=== PATIENT | male | born 1945 | race American Indian/Alaskan Native ===

== ENCOUNTER 2016-08-02 13:44 | Emergency (ER) | payer OTHER ==
[2016-08-02 13:53] VITALS: BMI 21.7
[2016-08-02] MEDS ORDERED: ALBUTEROL SO4 2.5/IPRATROPIUM 0.5 INH SOL 3 ML VIAL.NEB. NEB ONE ×2 (13:55→15:43)
--- NOTE | 2016-08-02 14:23 | PDOC ---
History of Present Illness - General Chief Complaint: Shortness of Breath Stated Complaint: SENT BY PCP,SOB Time Seen by Provider: 08/02/16 13:59 Past History - Past Medical History Allergies/Adverse Reactions: Allergies Allergy/AdvReac Type Severity Reaction Status Date / Time No Known Allergies Allergy Verified 08/02/16 13:53 Home Medications: Ambulatory Orders Albuterol Sulfate Inhaler - [Ventolin HFA Inhaler -] 2 inh PO Q4H PRN #1 inh Amlodipine Besylate [Norvasc -] 5 mg PO DAILY 08/02/16 Prednisone [Deltasone -] 40 mg PO DAILY #10 tablet 08/02/16 CVA: Yes HTN: Yes Other medical history: PATIENT DENIES MEDICAL HISTORY - Psycho/Social/Smoking Cessation Hx Suicidal Ideation: No Smoking History: Never smoked Hx Alcohol Use: No Drug/Substance Use Hx: No *Physical Exam - Vital Signs Last Vital Signs Temp Pulse Resp BP Pulse Ox 98.2 F 105 H 32 H 171/140 92 L 08/02/16 13:49 08/02/16 13:49 08/02/16 13:49 08/02/16 13:49 08/02/16 13:49 ED Treatment Course - LABORATORY CBC & Chemistry Diagram: 08/02/16 16:00 08/02/16 16:00 - Medications Given in the ED: ED Medications Discontinued Medications Generic Name Dose Route Start Last Admin Trade Name Freq PRN Reason Stop Dose Admin Albuterol/Ipratropium 1 amp 08/02/16 13:55 08/02/16 13:56 Duoneb - NEB 08/02/16 13:56 1 amp NOW ONE Administration Medical Decision Making - Medical Decision Making 08/02/16 18:39 Patient is a 70-year-old man who was evaluated by the resident. He came back from a trip to [facility] 2 weeks ago. He has been having cough and shortness of breath since that time. He also noted diffuse wheezing. He denies fever, chest pain, or headache. On examination, there is mild diffuse expiratory wheezing throughout all lung denson. Heart is normal. Abdomen is benign. Extremities are without edema. Twelve-lead EKG shows normal sinus rhythm at a rate of 79 bpm. There is biatrial enlargement. There is poor R-wave progression from V1 to V4. There are no acute ST elevations or depressions. Is no old EKG for comparison. Chest x-ray is currently pending. Laboratory studies reviewed. CBC is mildly elevated with increased eosinophils. D-dimer is well within the normal range. Creatinine is normal. Troponin is negative. BNP is mildly elevated, but not significantly abnormal for age. Impression: Given patient's prior history of asthma although it has not been active in recent years, this is most likely bronchospasm. Acute coronary syndrome is unlikely given the duration of symptoms and the negative troponin with no acute ST or T-wave changes on EKG. Pulmonary embolism is also highly unlikely given the absence of chest pain, no hemoptysis, and d-dimer well within the normal range. Plan is to check the chest x-ray to rule out other cardiopulmonary pathology. Patient is feeling better post bronchodilators and steroids. Chest x-ray shows chronic biapical pleural thickening. Patient grew up in [place]. He denies any history of known tuberculosis. Although he has been having wheezing over the last 2 weeks. His weight has been stable. There are no night sweats. There have been no fevers. Patient will be treated with albuterol and prednisone. He will be referred to the human geography instructor for further workup of his biapical pleural thickening. Laboratory Results - last 24 hr 08/02/16 08/02/16 08/02/16 16:00 16:00 16:00 WBC 12.1 H RBC 5.41 Hgb 15.7 Hct 47.1 MCV 87.0 MCHC 33.4 RDW 14.1 Plt Count 296 MPV 6.8 L Neutrophils % 80.2 Lymphocytes % 7.5 L Monocytes % 5.7 Eosinophils % 6.1 H Basophils % 0.5 PTT (Actin FS) D-Dimer 43 Sodium 137 Potassium 4.2 Chloride 99 Carbon Dioxide 26 Anion Gap 12 BUN 21 H Creatinine 1.1 Creat Clearance w eGFR > 60 Random Glucose 112 H Calcium 9.0 Total Bilirubin 2.0 H AST 35 ALT 37 Alkaline Phosphatase 93 Creatine Kinase 477 H Troponin I < 0.02 B-Natriuretic Peptide Total Protein 8.1 Albumin 4.2 08/02/16 08/02/16 16:00 16:00 WBC RBC Hgb Hct MCV MCHC RDW Plt Count MPV Neutrophils % Lymphocytes % Monocytes % Eosinophils % Basophils % PTT (Actin FS) 32.0 D-Dimer Sodium Potassium Chloride Carbon Dioxide Anion Gap BUN Creatinine Creat Clearance w eGFR Random Glucose Calcium Total Bilirubin AST ALT Alkaline Phosphatase Creatine Kinase Troponin I B-Natriuretic Peptide 220.34 H Total Protein Albumin 08/02/16 20:43 *DC/Admit/Observation/Transfer Diagnosis at time of Disposition: Asthma Qualifiers: Asthma severity: mild intermittent Asthma complication type: with acute exacerbation Qualified Code(s): J45.21 - Mild intermittent asthma with (acute) exacerbation - Discharge Dispostion Disposition: HOME Condition at time of disposition: Stable Admit: No - Prescriptions Prescriptions: Prednisone [Deltasone -] 40 mg PO DAILY #10 tablet Albuterol Sulfate Inhaler - [Ventolin HFA Inhaler -] 2 inh PO Q4H PRN #1 inh PRN Reason: Asthma - Referrals Referrals: Derrell Hobbs MD [Primary Care Provider] - Gagan Sinha MD, MD [Staff Physician] - Call tomorrow - Patient Instructions Printed Discharge Instructions: DI for Asthma -- Adult Additional Instructions: Today you were evaluated for wheezing and shortness of breath. This is due to a flareup of asthma. Take prednisone 2 tablets, 40 mg total, every morning. Take albuterol 2 inhalations every 4 hours as needed for wheezing. Continue your blood pressure medications as before. Be sure to take them every day. Your chest x-ray showed thickening of the pleura at the top of the lungs. This needs to be followed up with a pulmonary doctor. Call Dr. Gagan Sinha tomorrow morning at 9 AM to schedule your follow-up pulmonary appointment. Return to the Hospital immediately if you have fever, night sweats, or cough with blood. Otherwise follow-up with your primary doctor and the pulmonary doctor. Bring a copy of all of your results with you to your next appointments.
--- NOTE | 2016-08-02 14:23 | PDOC ---
[id number] Limitations - History of Present Illness Initial Comments: 70 yo Citizen Of [place] man with h/o asthma never intubated non-steroid dependent and HTN presented to the ED with worsening shortness of breath x 1 week. He came from [facility] and arrived in [place] 1 week ago. He attributes the symptoms to the weather change in that [place] is much colder than [place]. He also coughs intermittently with white sputum production. Denies fever, chills, h/o smoking, headache, n/v, chest pain, urinary or bowel symptoms. <Luis Miguel Valera - Last Filed: 08/05/16 00:02> <Pj Tipton - Last Filed: 08/13/16 13:41> - General Chief Complaint: Shortness of Breath Stated Complaint: SENT BY PCP,SOB Time Seen by Provider: 08/02/16 13:59 Past History - Past Medical History CVA: Yes HTN: Yes Other medical history: PATIENT DENIES MEDICAL HISTORY - Psycho/Social/Smoking Cessation Hx Suicidal Ideation: No Smoking History: Never smoked Hx Alcohol Use: No Drug/Substance Use Hx: No <Luis Miguel Valera - Last Filed: 08/05/16 00:02> <Pj Tipton - Last Filed: 08/13/16 13:41> - Past Medical History Allergies/Adverse Reactions: Allergies Allergy/AdvReac Type Severity Reaction Status Date / Time No Known Allergies Allergy Verified 08/02/16 13:53 Home Medications: Ambulatory Orders Albuterol Sulfate Inhaler - [Ventolin HFA Inhaler -] 2 inh PO Q4H PRN #1 inh Amlodipine Besylate [Norvasc -] 5 mg PO DAILY 08/02/16 Prednisone [Deltasone -] 40 mg PO DAILY #10 tablet 08/02/16 Review of Systems - Review of Systems Able to Perform ROS?: Yes Is the patient limited Macedonian proficient: No Constitutional: No: Chills, Fever HEENTM: No: Nose Congestion, Throat Pain, Throat Swelling Respiratory: Yes: Cough, Shortness of Breath Cardiac (ROS): No: Chest Pain ABD/GI: No: Nausea, Vomiting <Luis Miguel Valera - Last Filed: 08/05/16 00:02> *Physical Exam - Vital Signs Last Vital Signs Temp Pulse Resp BP Pulse Ox 98.2 F 105 H 32 H 171/140 92 L 08/02/16 13:49 08/02/16 13:49 08/02/16 13:49 08/02/16 13:49 08/02/16 13:49 - Physical Exam General Appearance: Yes: Mild Distress HEENT: negative: Pharyngeal Erythema, Tonsillar Exudate, Tonsillar Erythema, Sinus Tenderness Neck: negative: Lymphadenopathy (R), Lymphadenopathy (L) Respiratory/Chest: positive: Wheezing, Other (poor air entry) Cardiovascular: positive: Regular Rhythm, Regular Rate, S1, S2, Tachycardia Gastrointestinal/Abdominal: negative: Distended, Tenderness Neurologic: positive: Fully Oriented, Alert <Luis Miguel Valera - Last Filed: 08/05/16 00:02> - Vital Signs Last Vital Signs Temp Pulse Resp BP Pulse Ox 98.6 F 85 16 144/104 99 08/02/16 21:22 08/02/16 21:22 08/02/16 21:22 08/02/16 21:22 08/02/16 21:22 <Pj Tipton - Last Filed: 08/13/16 13:41> ED Treatment Course - LABORATORY CBC & Chemistry Diagram: 08/02/16 16:00 08/02/16 16:00 - Medications Given in the ED: ED Medications Discontinued Medications Generic Name Dose Route Start Last Admin Trade Name Freq PRN Reason Stop Dose Admin Albuterol/Ipratropium 1 amp 08/02/16 13:55 08/02/16 13:56 Duoneb - NEB 08/02/16 13:56 1 amp NOW ONE Administration <Luis Miguel Valera - Last Filed: 08/05/16 00:02> - LABORATORY CBC & Chemistry Diagram: 08/02/16 16:00 08/02/16 16:00 - ADDITIONAL ORDERS Additional order review: 08/02/16 16:00 RBC 5.41 MCV 87.0 MCHC 33.4 RDW 14.1 MPV 6.8 L Neutrophils % 80.2 Lymphocytes % 7.5 L Monocytes % 5.7 Eosinophils % 6.1 H Basophils % 0.5 - RADIOLOGY Radiology Studies Ordered: Category Date Time Status CHEST PA & LAT [RAD] Stat Radiology 08/02/16 14:32 Completed - Medications Given in the ED: ED Medications Discontinued Medications Generic Name Dose Route Start Last Admin Trade Name Freq PRN Reason Stop Dose Admin Albuterol/Ipratropium 1 amp 08/02/16 13:55 08/02/16 13:56 Duoneb - NEB 08/02/16 13:56 1 amp NOW ONE Administration Albuterol/Ipratropium 1 amp 08/02/16 15:00 08/02/16 16:00 Duoneb - NEB 08/02/16 15:31 1 amp Q15M NINO Administration Amlodipine Besylate 5 mg 08/02/16 14:50 08/02/16 15:45 Norvasc - PO 08/02/16 14:51 5 mg ONCE ONE Administration Prednisone 60 mg 08/02/16 14:53 08/02/16 16:09 Deltasone - PO 08/02/16 14:54 60 mg ONCE ONE Administration <Pj Tipton - Last Filed: 08/13/16 13:41> Medical Decision Making - Medical Decision Making 08/02/16 14:40 70 yo M with h/o asthma just came from [facility] after long flight presented with sob x 1 week. Ddx include asthma exacerbation, PE, URI, CHF, COPD. Will obtain d -dimer, BNP, cbc, cmp, cxr, ekg. 08/02/16 14:51 BP 155/104 and poorly controlled. Patient stated he was prescribed amlodipine 5mg TID but rarely takes it. Will give amlodipine 5mg once. <Luis Miguel Valera - Last Filed: 08/05/16 00:02> - Medical Decision Making 08/13/16 13:34 Laboratory Tests 08/02/16 08/02/16 08/02/16 16:00 16:00 16:00 WBC 12.1 H RBC 5.41 Hgb 15.7 Hct 47.1 MCV 87.0 MCHC 33.4 RDW 14.1 Plt Count 296 MPV 6.8 L Neutrophils % 80.2 Lymphocytes % 7.5 L Monocytes % 5.7 Eosinophils % 6.1 H Basophils % 0.5 PTT (Actin FS) D-Dimer 43 Sodium 137 Potassium 4.2 Chloride 99 Carbon Dioxide 26 Anion Gap 12 BUN 21 H Creatinine 1.1 Creat Clearance w eGFR > 60 Random Glucose 112 H Calcium 9.0 Total Bilirubin 2.0 H AST 35 ALT 37 Alkaline Phosphatase 93 Creatine Kinase 477 H Creatine Kinase Index 3.1 CK-MB (CK-2) 14.714 H CK-MB (CK-2) Rel Index Troponin I < 0.02 B-Natriuretic Peptide Total Protein 8.1 Albumin 4.2 08/02/16 08/02/16 08/02/16 16:00 16:00 16:00 WBC RBC Hgb Hct MCV MCHC RDW Plt Count MPV Neutrophils % Lymphocytes % Monocytes % Eosinophils % Basophils % PTT (Actin FS) 32.0 D-Dimer Sodium Potassium Chloride Carbon Dioxide Anion Gap BUN Creatinine Creat Clearance w eGFR Random Glucose Calcium Total Bilirubin AST ALT Alkaline Phosphatase Creatine Kinase Creatine Kinase Index CK-MB (CK-2) CK-MB (CK-2) Rel Index Cancelled Troponin I B-Natriuretic Peptide 220.34 H Total Protein Albumin 08/13/16 13:36 CXR no chf, no pneumonia, shows biapical pleural thickening. Impression: Dyspnea and wheezing with no chf or penumonia. CXR is suggestive of possible old TB with biapical pleural thickening, patient is from [place]. He denies any recent weight change, fevers or night sweats. He denies any known hx of TB. These CXR findings are likely chronic. Patient will be treated for asthma with beta agonist and short course of steroids. He was referred to pulmonary for outpatient consultation regarding the biapical pleural thickening. If he will be on longer course of steroids in the future, he would be at risk for reactivation of late latent TB. Patient was advised of all of the above and agreed to call the gristmiller the next day to schedule the appointment. He also agreed to follow up with his primary physician to assure better blood pressure control, and to restart his BP meds. Prior to discharge his repeat blood pressure was down to high normal range on my repeat check. Following the ED visit I attempted to call the patient on two occasions to reassess his asthma symptoms and to assure he went for follow up. There was no answer either time I tried to call him. <Pj Tipton - Last Filed: 08/13/16 13:41> *DC/Admit/Observation/Transfer - Discharge Dispostion Admit: No <Luis Miguel Valera - Last Filed: 08/05/16 00:02> <Pj Tipton - Last Filed: 08/13/16 13:41> Diagnosis at time of Disposition: Asthma Qualifiers: Asthma severity: mild intermittent Asthma complication type: with acute exacerbation Qualified Code(s): J45.21 - Mild intermittent asthma with (acute) exacerbation - Discharge Dispostion Disposition: HOME Condition at time of disposition: Stable - Prescriptions Prescriptions: Prednisone [Deltasone -] 40 mg PO DAILY #10 tablet Albuterol Sulfate Inhaler - [Ventolin HFA Inhaler -] 2 inh PO Q4H PRN #1 inh PRN Reason: Asthma - Referrals Referrals: Derrell Hobbs MD [Primary Care Provider] - Gagan Sinha MD, MD [Staff Physician] - Call tomorrow - Patient Instructions Printed Discharge Instructions: DI for Asthma -- Adult Additional Instructions: Today you were evaluated for wheezing and shortness of breath. This is due to a flareup of asthma. Take prednisone 2 tablets, 40 mg total, every morning. Take albuterol 2 inhalations every 4 hours as needed for wheezing. Continue your blood pressure medications as before. Be sure to take them every day. Your chest x-ray showed thickening of the pleura at the top of the lungs. This needs to be followed up with a pulmonary doctor. Call Dr. Gagan Sinha tomorrow morning at 9 AM to schedule your follow-up pulmonary appointment. Return to the Hospital immediately if you have fever, night sweats, or cough with blood. Otherwise follow-up with your primary doctor and the pulmonary doctor. Bring a copy of all of your results with you to your next appointments.
[2016-08-02] MEDS ORDERED: amLODIPine BESYLATE 5 MG TABLET (FP) PO ONE (14:50)
[2016-08-02] MEDS ORDERED: predniSONE 20 MG TABLET (UD) PO ONE (14:53)
[2016-08-02] MEDS ORDERED: predniSONE 20 MG TABLET (UD) ONE ×2 (15:43→16:04)
[2016-08-02] MEDS ORDERED: amLODIPine BESYLATE 5 MG TABLET (FP) ONE (15:43)
[2016-08-02] MEDS: ALBUTEROL SO4 2.5/IPRATROPIUM 0.5 INH SOL 3 ML VIAL.NEB. NEB SCH ×2 (15:59→16:00)
[2016-08-02 16:44] LABS: ALBUMIN 4.2 g/dl (3.4-5.0); ANION GAP 12 (8-16); CO2 26 mmol/L (21-32); COCKROFT - GAULT 59; CREATININE 1.1 mg/dL (0.7-1.3); GLUCOSE,RANDOM 112 mg/dL (74-106); SGOT/AST 35 U/L (15-37); SGPT/ALT 37 U/L (12-78); TOT PROT 8.1 g/dl (6.4-8.2)
[2016-08-02 16:47] LABS: ALK PHOS 93 U/L (45-117); TROPONIN I < 0.02 ng/ml (0.00-0.05)
[2016-08-02 16:59] LABS: BASOPHIL 0.5 % (0-2.0); EOSINOPHIL 6.1 % (0-4.5); MCH 29.1 pg (25.7-33.7); MCHC 33.4 g/dl (32.0-35.9); MEAN PLT VOLUME 6.8 fl (7.5-11.1); NEUTROPHILS 80.2 % (42.8-82.8); PLATELET COUNT 296 K/MM3 (134-434); RDW 14.1 % (11.9-15.9); WHITE BLOOD COUNT 12.1 K/mm3 (4.0-10.0)
[2016-08-02 21:24] VITALS: BP 144/104; PULSE 85; TEMP 98.6
--- NOTE | 2016-08-03 13:33 | EKG ---
Test Reason : Blood Pressure : / mmHG Vent. Rate : 092 BPM Atrial Rate : 092 BPM P-R Int : 144 ms QRS Dur : 088 ms QT Int : 364 ms P-R-T Axes : 084 069 069 degrees QTc Int : 450 ms NORMAL SINUS RHYTHM BIATRIAL ENLARGEMENT ABNORMAL ECG NO PREVIOUS ECGS AVAILABLE Confirmed by RUTH OBREGON, ELISE ([id number]) on 08/03/2016 1:33:16 PM Referred By: Confirmed By:ELISE MIRANDA MD
--- NOTE | 2016-08-05 11:23 | EKG ---
Test Reason : Blood Pressure : / mmHG Vent. Rate : 079 BPM Atrial Rate : 079 BPM P-R Int : 150 ms QRS Dur : 088 ms QT Int : 394 ms P-R-T Axes : 081 055 059 degrees QTc Int : 451 ms NORMAL SINUS RHYTHM BIATRIAL ENLARGEMENT CANNOT RULE OUT ANTERIOR INFARCT , AGE UNDETERMINED ABNORMAL ECG WHEN COMPARED WITH ECG OF 02-AUG-2016 14:25, NO SIGNIFICANT CHANGE WAS FOUND Confirmed by RUTH OBREGON, ELISE ([id number]) on 08/05/2016 11:23:25 AM Referred By: Confirmed By:ELISE MIRANDA MD
== END 2016-08-02 21:33 | disposition home or self-care (01) ==
LOC: JER 13:44
PROC: 3E0F7GC Introduction of Other Therapeutic Substance into Respiratory Tract, Via Natural or Artificial Opening (ICD-10-PCS; principal; 2016-08-02)
PROC: 3E0F7GC Introduction of Other Therapeutic Substance into Respiratory Tract, Via Natural or Artificial Opening (ICD-10-PCS; 2016-08-02)
DX: J45.21 Mild intermittent asthma with (acute) exacerbation (principal); I10 Essential (primary) hypertension; Z86.73 Personal history of transient ischemic attack (TIA), and cerebral infarction without residual deficits
CPT/HCPCS: 36415; 71020-TC; 80053; 82550; 82553; 83880; 84484; 85025; 85379; 85730; 93005; 93010; 94640; 99284-25